=== PATIENT | male | born 1990 | race Caucasian/White ===

== ENCOUNTER 2018-01-20 22:02 | Emergency (ER) | payer OTHER, SELFPAY ==
[2018-01-20 22:05] VITALS: BP 135/84; PULSE 92; RESP 17; O2SAT 100; BMI 29.8
--- NOTE | 2018-01-20 22:18 | DI.RAD.S_ITS ---
PROCEDURE: XR ANKLE LT MIN 3V INDICATIONS: left ankle injury from playing softball TECHNIQUE: 3 views of the ankle were acquired. COMPARISON: None. FINDINGS: Bones: No fractures or dislocations. Ankle mortise is normally aligned. No suspicious bony lesions. Soft tissues: Lateral soft tissue swelling. IMPRESSION: No fracture. Dictated by: Moustapha Streeter M.D. on 01/21/2018 at 8:21 Approved by: Moustapha Streeter M.D. on 01/21/2018 at 8:22
[2018-01-20 22:40] VITALS: BP 135/84; PULSE 92; RESP 17; O2SAT 100
--- NOTE | 2018-01-20 22:43 | ED_ITS ---
HPI - Extremity Injury (Lower) General Chief Complaint: Extremity Injury, Lower Stated Complaint: LT ANKLE INJURY Time Seen by Provider: 01/20/18 22:20 Source: patient Mode of arrival: wheelchair Limitations: no limitations History of Present Illness HPI Narrative: Patient is a 27-year-old male who presents with left ankle pain. He was playing softball when he slid into 2nd base. He was not able to stand after the injury. He has no numbness or tingling he does have lateral swelling. The injury happened about 1 hr ago he did take Advil prior. MD complaint: ankle injury Related Data Home Medications Medication Instructions Recorded Confirmed ibuprofen 800 mg PO PRN #0 04/26/17 Allergies Allergy/AdvReac Type Severity Reaction Status Date / Time No Known Allergies Allergy Uncoded 01/20/18 22:21 Review of Systems Review of Systems All systems reviewed & are unremarkable except as noted in HPI and below Constitutional Denies weakness Musculoskeletal Reports as per HPI Integumentary/Breasts Denies pruritus and Denies rash Neurologic Denies burning sensations and Denies weakness [facility] Medical History Patient denies medical problems (Acute) Social History Smoking Status: Never smoker alcohol intake: never substance use type: does not use Exam Initial Vital Signs Initial Vital Signs: Vital Signs Pulse Rate 92 H 01/20/18 22:05 Respiratory Rate 17 01/20/18 22:05 Blood Pressure 135/84 H 01/20/18 22:05 Pulse Oximetry 100 01/20/18 22:05 GENERAL: Well-appearing, well-nourished and in no acute distress. CARDIOVASCULAR: peripheral pulses in tact, cap refill <2 sec RESPIRATORY: No respiratory distress, speaks in full sentences without difficulty EXTREMITIES: Normal range of motion, no clubbing or edema. Neurovascularly intact NEUROLOGICAL: Cranial nerves II through XII grossly intact. Normal gait and speech. SKIN: Warm, dry, no petechiae, no rashes or lesions. Extrem Left lower extremity: ankle (Distal pulse in taxi) Details: swelling Details: laterally (Mild tenderness on malleoli); no abrasions, no lacerations and no ecchymosis Course Orders Ordered: ED Orders 01/20/18 22:18 XR ankle LT min 3V Stat Vital Signs - 8 hr 01/20/18 22:05 01/20/18 22:40 Pulse Rate 92 H 92 H Respiratory Rate 17 17 Blood Pressure 135/84 H Blood Pressure [Left Arm] 135/84 H Pulse Oximetry 100 100 MDM - Extremity Injury (Lower) Imaging Data Left ankle x-ray: Attestation: I personally reviewed and interpreted this imaging study as follows: My impression: No acute fracture MDM Narrative Medical decision making narrative: Patient has crutches at home. Discharge Plan Departure Patient Disposition: Home, Self-Care Clinical Impression: Moderate left ankle sprain Discharge Date/Time: 01/20/18 23:00 Interventions: ED Discharge Assessment Last Done: 01/20/18 22:55 Instructions: Ankle Sprain Activity Restrictions/Additional Instructions: *You have been diagnosed with right ankle sprain *What to do: Use crutches as tolerated, Jamison wrap full active, elevate, ice *Continue to take medications as directed Motrin/ibuprofen 600 mg every 6 hr if needed for mild-to- moderate pain *Follow up with your primary care provider in 2-3 days *Return to ER if you should have any new, worsening or concerning symptoms Prescriptions: No Action ibuprofen 200 MG tablet 800 mg PO PRNQty: 0 RF: 0 Referrals: [facility] [Outside]
== END 2018-01-20 23:00 | disposition home or self-care (01) ==
PROVIDERS: Emergency Provider Emergency Medicine
DX: S93.402A Sprain of unspecified ligament of left ankle, initial encounter (principal); Y93.64 Activity, baseball
CPT/HCPCS: 73610; 99282; 99283